=== PATIENT | male | born 1940 | race Caucasian/White ===

== ENCOUNTER 2020-07-03 11:12 | Observation (INO) ==
[~2020-07-03 11:12] MED LIST: Buffered Lidocaine 1% SYRIN 1 ml INTRADERM ONE; Famotidine IV 10 MG/ML 2 ml VIAL (20 mg) IV ONE; Gentamicin ADULT 160 MG in NS 0.9% 100 ml BAG 100 ML IVPB ONE; Lactated Ringers 1000 ml BAG 1,000 ML IV SCH
[2020-07-03] MEDS ORDERED: cefTRIAXone 2 GM ADDV.VIAL ONE (11:43)
[2020-07-03] MEDS ORDERED: Famotidine IV 10 MG/ML 2 ml VIAL (20 mg) ONE (11:44)
[2020-07-03] MEDS ORDERED: Midazolam 2 mg/2 ml VIAL 1 mg/ml 2 ml VIAL (2 mg) ONE (11:51)
[2020-07-03] MEDS ORDERED: fentaNYL 100 mcg/2 ml 50 MCG/ML VIAL ONE (11:51)
[2020-07-03] MEDS ORDERED: Lidocaine 2% PF 5 ML VIAL ONE (11:52)
[2020-07-03] MEDS ORDERED: Bupivacaine 0.5% SDV PF 30ML VIAL ONE (13:24)
[2020-07-03] MEDS ORDERED: Dexamethasone IV 4 MG/ML VIAL 1 ml VIAL ONE (13:57)
[2020-07-03] MEDS ORDERED: Ondansetron 4 mg VIAL 2 MG/ML 2 ml VIAL ONE (13:57)
[2020-07-03] MEDS ORDERED: Glycopyrrolate IV 0.2 MG/ML 1 ML VIAL ONE (13:58)
[2020-07-03] MEDS ORDERED: Furosemide 20 mg/2 ml IV VIAL ONE (14:12)
[2020-07-03] MEDS ORDERED: EPHEDrine (Pressors) 50 MG/ML VIAL ONE (14:35)
[2020-07-03] MEDS ORDERED: Ondansetron 4 mg VIAL 2 MG/ML 2 ml VIAL IV PRN (16:23)
[2020-07-03] MEDS ORDERED: Naloxone 0.4 mg VIAL 0.4 mg/ml 1 ml VIAL IV PRN (16:23)
[2020-07-03] MEDS ORDERED: fentaNYL 100 mcg/2 ml 50 MCG/ML VIAL IV PRN (16:23)
[2020-07-03] MEDS: LACTATED RINGERS 1000 ML BAG IV SCH (18:05)
[2020-07-04] MEDS: LACTATED RINGERS 1000 ML BAG IV SCH ×2 (01:04→07:19)
[2020-07-04 05:14] LABS: Calcium 9.4 mg/dL (8.6-10.3); EGFR African American 86.7 (>60); EGFR Non-African American 71.6 (>60); Potassium 3.7 mmol/L (3.5-5.0)
[2020-07-04 08:02] VITALS: BP 111/66
[2020-07-04] MEDS ORDERED: cefTRIAXone 2 GM ADDV.VIAL 2 GM in NS 0.9% 100 ml BAG 100 ML IV ONE (10:30)
== END 2020-07-04 13:01 | disposition home or self-care (01) ==
LOC: OR 11:12 → SSU 11:12
PROVIDERS: ADMIT Urology; ATTEND Urology